=== PATIENT | female | born 1960 | race Caucasian/White ===

== ENCOUNTER 2019-07-15 21:34 | Emergency (ER) | payer MEDICAID ==
[~2019-07-15] VITALS: Ht 162.6 cm; Wt 70.5 kg
[2019-07-15 21:57] VITALS: Ht 162.6 cm; Wt 70.5 kg
[2019-07-15] MEDS ORDERED: AUGMENTIN 875-11 TAB PO (23:44)
[2019-07-15] MEDS ORDERED: HYDROCODON-ACE1 EA10 PO (23:44)
[2019-07-16 00:07] VITALS: BP 129/81
== END 2019-07-16 00:07 | disposition home or self-care (01) ==
LOC: D.ER 21:34
DX: S81.851A Open bite, right lower leg, initial encounter (principal); W54.0XXA Bitten by dog, initial encounter; Y93.89 Activity, other specified; Y92.89 Other specified places as the place of occurrence of the external cause

== ENCOUNTER 2019-07-20 08:47 | Emergency (ER) | payer MEDICAID ==
[~2019-07-20] VITALS: Ht 162.6 cm; Wt 72.7 kg
[~2019-07-20 08:47] MED LIST: AUGMENTIN 875-11 TAB PO; HYDROCODON-ACE1 EA10 PO
[2019-07-20 08:59] VITALS: Ht 162.6 cm; Wt 72.7 kg
[2019-07-20 09:26] LABS: BASOPHILS 0.2 % (0-2); EOSINOPHILS 4.4 % (0-7); HEMOGLOBIN 13.1 g/dL (12-16); IMMATURE GRANULOCYTES 0.2 % (0-5); LYMPHOCYTES 28.5 % (15-50); MCH 33.3 pg (26.0-34.0); MCHC 34.5 g/dL (31.0-37.0); MCV 96.7 fL (80.0-100.0); MEAN PLATELET VOLUME 8.9 fL (7.4-10.4); MONOCYTES 7.9 % (2-11); NEUTROPHILS 58.8 % (40-80); PLATELET COUNT 196 10x3/uL (130-400); RBC 3.93 10x6/uL (4.00-5.40); RDW 12.8 % (11.5-14.5)
[2019-07-20] MEDS ORDERED: CLEOCIN HCL300 MG PO (09:30)
[2019-07-20] MEDS ORDERED: HYDROCODON-ACE1 EA10 PO (09:30)
[2019-07-20] MEDS ORDERED: KEFLEX500 MG PO (09:30)
[2019-07-20 09:39] LABS: ALBUMIN 3.1 g/dL (3.4-5.0); ALKALINE PHOSPHATASE 57 U/L (46-116); ALT (SGPT) 25 U/L (10-68); BILIRUBIN - TOTAL 0.34 mg/dL (0.2-1.3); C-REACTIVE PROTEIN 10.4 mg/dL (0.0-0.9); CALC OSMOLALITY 277 mosm/kg (275-300); CALCIUM 9.5 mg/dL (8.5-10.1); CARBON DIOXIDE 29.3 mmol/L (21.0-32.0); CHLORIDE - SERUM 105 mmol/L (98-107); CREATININE - SERUM 0.8 mg/dL (0.6-1.3); GLUCOSE 112 mg/dL (74-106); POTASSIUM - SERUM 4.6 mmol/L (3.5-5.1); PROTEIN - SERUM 7.7 g/dL (6.4-8.2); SODIUM 139 mmol/L (136-145); UREA NITROGEN 11 mg/dL (7-18); eGFR NON AFRICAN AMERICAN 77 mL/min (90-120)
[2019-07-20 10:53] VITALS: BP 122/68
== END 2019-07-20 10:53 | disposition home or self-care (01) ==
LOC: D.ER 08:47
PROVIDERS: Family Medicine
DX: S81.851D Open bite, right lower leg, subsequent encounter (principal); L08.9 Local infection of the skin and subcutaneous tissue, unspecified; W54.0XXD Bitten by dog, subsequent encounter

== ENCOUNTER 2019-07-22 15:24 | Emergency (ER) | payer SELFPAY ==
[~2019-07-22] VITALS: Ht 162.6 cm; Wt 72.7 kg
[~2019-07-22 15:24] MED LIST changes: +CLEOCIN HCL300 MG PO; +KEFLEX500 MG PO
[2019-07-22 15:37] VITALS: Ht 162.6 cm; Wt 72.7 kg
[2019-07-22 16:55] LABS: BASOPHILS 0.4 % (0-2); EOSINOPHILS 3.7 % (0-7); HEMATOCRIT 36.9 % (36.0-48.0); HEMOGLOBIN 12.5 g/dL (12-16); IMMATURE GRANULOCYTES 0.4 % (0-5); LYMPHOCYTES 23.9 % (15-50); MCH 32.7 pg (26.0-34.0); MCHC 33.9 g/dL (31.0-37.0); MCV 96.6 fL (80.0-100.0); MEAN PLATELET VOLUME 8.6 fL (7.4-10.4); MONOCYTES 6.4 % (2-11); NEUTROPHILS 65.2 % (40-80); RBC 3.82 10x6/uL (4.00-5.40); RDW 12.8 % (11.5-14.5); WBC 5.7 10x3/uL (4.8-10.8)
[2019-07-22 16:59] LABS: PLATELET COUNT 240 10x3/uL (130-400)
[2019-07-22 17:10] LABS: ALKALINE PHOSPHATASE 57 U/L (46-116); ALT (SGPT) 20 U/L (10-68); BILIRUBIN - TOTAL 0.22 mg/dL (0.2-1.3); CALC OSMOLALITY 278 mosm/kg (275-300); CALCIUM 9.3 mg/dL (8.5-10.1); CARBON DIOXIDE 32.4 mmol/L (21.0-32.0); CHLORIDE - SERUM 103 mmol/L (98-107); CREATININE - SERUM 0.8 mg/dL (0.6-1.3); GLUCOSE 106 mg/dL (74-106); POTASSIUM - SERUM 4.6 mmol/L (3.5-5.1); PROTEIN - SERUM 7.3 g/dL (6.4-8.2); SODIUM 140 mmol/L (136-145); UREA NITROGEN 12 mg/dL (7-18); eGFR NON AFRICAN AMERICAN 77 mL/min (90-120)
[2019-07-22] MEDS ORDERED: HYDROCODONE-A1 UDTA2 PO (17:15)
[2019-07-22 17:55] VITALS: BP 122/73
== END 2019-07-22 17:45 | disposition home or self-care (01) ==
LOC: D.ER 15:24
PROVIDERS: Family Medicine
DX: S81.851D Open bite, right lower leg, subsequent encounter (principal); W54.0XXD Bitten by dog, subsequent encounter; L03.115 Cellulitis of right lower limb